=== PATIENT | male | born 1990 | race Caucasian/White ===

== ENCOUNTER 2018-07-18 22:36 | Emergency (ER) | payer BC ==
--- NOTE | 2018-07-18 23:17 | RAD ---
TWO VIEWS LEFT FOOT: 07/18/18 HISTORY: Pain left toe. AP and lateral views left foot is obtained. No evidence of left foot fractures, subluxations, or bony lesions seen. IMPRESSION: Unremarkable AP and lateral views left foot. POS: [facility]
== END 2018-07-18 23:46 | disposition home or self-care (01) ==
LOC: ERS 22:36
DX: L03.032 Cellulitis of left toe (principal); F90.9 Attention-deficit hyperactivity disorder, unspecified type